=== PATIENT | female | born 1950 | race Caucasian/White ===

== ENCOUNTER → 2019-12-23 09:41 | Outpatient (CLI) | payer OTHER, SELFPAY ==
--- NOTE | ~2019-12-23 | MR_ITS ---
EXAMINATION: MR brain/brain stem wo con DATE: 12/23/2019 10:30 INDICATION: Other amnesia. Headache. TECHNIQUE: Magnetic resonance imaging (MRI) of the brain and brainstem was performed without intraven ous contrast. Sequences included sagittal and axial T1-weighted FSE, axial diffusion-weighted FS EPI, axial T2*-weighted GRE, axial T2-weighted FLAIR Propeller, and axial T2-weighted Propeller. Apparent diffusion coefficient (ADC) maps were created. COMPARISON: None. FINDINGS: There is no intracranial hemorrhage, acute infarction, or abnormal intracranial mass lesion . The ventricles are normal in size. The paranasal sinuses are clear. The mastoid air cells are amelia l. The orbits are normal. IMPRESSION: 1. Normal brain. Reviewed, dictated and finalized at location A. PLATER IMPRESSION: 1. Normal brain.
== END ==
PROVIDERS: PCP Family Medicine; Visit Provider Family Medicine
DX: R41.3 Other amnesia (principal)
CPT/HCPCS: 70551

== ENCOUNTER 2020-08-16 09:07 | Outpatient (CLI) | payer MEDICARE, SELFPAY ==
--- NOTE | ~2020-08-16 | XR_ITS ---
EXAMINATION: XR foot LT 2V, XR ankle LT min 3V EXAM DATE: 08/16/2020 09:50 INDICATION: No known recent injury provided at this time. Pain of the left foot, ankle. TECHNIQUE: Left ankle frontal, lateral and oblique projections obtained and reviewed. Frontal and la teral projections left foot. There are no prior studies for comparison. FINDINGS: The left ankle mortise appears intact. There is moderate-sized inferior calcaneal spur. Mild hallux valgus. There is mild to moderate 1st metatarsophalangeal and interphalangeal primary ost eoarthritis. There are no bony erosions identified. There are no acute fractures or dislocations i dentified. There is no subcutaneous gas. The soft tissue is unremarkable. There are no radiopaque foreign bodies. IMPRESSION: 1. 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 2. Mild hallux valgus. 3. Moderate size calcaneal inferior spur. Reviewed, dictated and finalized at location B. IMPRESSION: 1. 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 2. Mild hallux valgus. 3. Moderate size calcaneal inferior spur.
== END 2020-08-16 09:08 | disposition home or self-care (01) ==
LOC: ANHIMG 09:21
PROVIDERS: PCP Family Medicine; Visit Provider Nurse Practitioner Family
DX: M79.673 Pain in unspecified foot (principal); M79.89 Other specified soft tissue disorders; M19.072 Primary osteoarthritis, left ankle and foot; M20.12 Hallux valgus (acquired), left foot; M77.32 Calcaneal spur, left foot
CPT/HCPCS: 73610; 73620

== ENCOUNTER 2020-12-03 10:23 | Outpatient (CLI) | payer MEDICARE, SELFPAY ==
--- NOTE | 2020-12-05 10:43 | WPDNEUROLOGY ---
Neurology EEG Report General Information Date of Study: 12/03/20 TEST EEG DIAGNOSIS seizures with the possibility of his stroke CONDITION OF RECORDING awake drowsy and sleep EEG NUMBER [id number] CLINICAL HISTORY patient reported a couple of months ago he had an episode of seizures and was in [facility] has had no episode since then. EEG DESCRIPTION Basic resting occipital frequency consists of low to medium voltage 11 to 13 hertz per 2nd alpha admixed with low-voltage 15 to 18 hertz per 2nd beta. Regular EKG artifact is noted throughout the tracing intermittently. Bilateral symmetrical sleep activity is seen during sleep. Intermittent low-voltage right hemispheric delta activity is noted. Non paroxysmal focal. And lateralizing. IMPRESSION Abnormal record due to the presence of right hemispheric delta activity considering the clinical history this could be related to the previous insult clinical correlation recommended. There is no evidence of paroxysmal discharge at this particular time
== END 2020-12-03 10:24 | disposition home or self-care (01) ==
PROVIDERS: PCP Family Medicine
DX: R56.9 Unspecified convulsions (principal); R41.9 Unspecified symptoms and signs involving cognitive functions and awareness
CPT/HCPCS: 95816

== ENCOUNTER 2024-10-09 08:13 | Outpatient (CLI) | payer MEDICARE, SELFPAY ==
--- NOTE | ~2024-10-09 | MR_ITS ---
EXAMINATION: MR abdomen wo/w con DATE: 10/09/2024 09:23 INDICATION: Chronic abdominal pain TECHNIQUE: Magnetic resonance imaging (MRI) of the abdomen was performed without and with 16 mL Multi renea intravenous contrast. Sequences included coronal T2-weighted SS-FSE, coronal and axial FS 2D-F IESTA, axial STIR FSE, axial T2-weighted SS-FSE, axial T2-weighted FS SS-FSE, axial diffusion-weighte d SE, axial dual-echo T1-weighted FSPGR, and axial and coronal T1-weighted LAVA. Postcontrast axial T 1-weighted LAVA images were obtained in a time course. Postcontrast coronal T1-weighted LAVA images w ere obtained. COMPARISON: CT dated 04/10/2007 FINDINGS: Heart size is normal. No pericardial or pleural effusion. Magnetic field artifact associated with cho lecystectomy clips at the gallbladder fossa. Liver, spleen, pancreas, bilateral adrenal glands and ki dneys are normal. Common bile duct measures up to 5 mm diameter which is normal with no intrahepatic ductal or ductal dilation. No evident choledocholithiasis. Visual is portions of bowels are normal. N o pathologically enlarged abdominal or upper pelvic lymphadenopathy. Mild lumbar spondylosis with Stefanie morl's node along the inferior endplate of L4. Normal marrow signal is normal throughout. IMPRESSION: 1. Normal abdominal MRI. Reviewed, dictated and finalized at location B. AT CUTTER MACHINE IMPRESSION: 1. Normal abdominal MRI.
== END 2024-10-09 08:14 | disposition home or self-care (01) ==
LOC: ANHIMG 08:16
PROVIDERS: PCP Family Medicine; Visit Provider Family Medicine
DX: G89.29 Other chronic pain (principal); N28.9 Disorder of kidney and ureter, unspecified; R10.11 Right upper quadrant pain
CPT/HCPCS: 74183; A9577

== ENCOUNTER 2024-10-18 00:07 | Day surgery (SDC) | payer MEDICARE, SELFPAY ==
[2024-10-18 12:30] VITALS: BP 194/89; PULSE 68; RESP 20; TEMP 36.1; O2SAT 100
[2024-10-18] MEDS: LACTATED RINGERS 1,000 ML 150 ML IV CONT (12:47)
[2024-10-18 12:48] LABS: Glucose Point of Care 152 mg/dl (65-105)
--- NOTE | 2024-10-18 13:07 | P.HP_ITS ---
H&P: [facility] History of Present Illness Date/Time: 10/18/24 13:07 Chief Complaint: Dysphagia- screening colonoscopy Narrative: This is the patient's first colonoscopy after almost 20 years. There are no GI symptoms and there is no family history of colorectal cancer. The patient had a stroke 3 years ago, and since then, she has noticed that she had difficulty swallowing especially solids. There is no unintentional weight loss heartburn, or hematemesis. Review of Systems Review of Systems: All systems reviewed & are unremarkable except as noted in HPI and below PMFSH Past Medical History Medical History Altered mental status Apnea BMI 31.0-31.9,adult BMI 32.0-32.9,adult Dermatitis Ductal carcinoma of breast, stage 4 Essential (primary) hypertension GERD without esophagitis Hx of breast cancer Hypothyroidism Lump of left breast Mixed hyperlipidemia Seizures Type 2 diabetes mellitus with diabetic neuropathy, unspecified Vitamin D deficiency, unspecified Surgical History Surgical History Hx of cholecystectomy Hx of hysterectomy Family History Family History Father No problems noted. Mother No problems noted. Sibling No problems noted. Other Asthma Cerebrovascular accident Diabetes mellitus Family history of arthritis Family history of atrial fibrillation Family history of chronic obstructive pulmonary disease Family history of congestive heart failure Family history of hepatitis Family history of obesity Hypertension Social History Social History Smoking status: Never smoker Tobacco type: cigarettes Second hand tobacco smoke exposure: No Smoking end date: 11/23/80 Alcohol intake: never Substance use: never Substance use type: does not use Do You Feel Safe in your Home?: Yes Lack of Transportation: No Lack of Food: Never True Current Housing: I Have Housing Concerned About Future Housing: No Difficulty Paying Gas/Electric Bills: No Difficulty Paying for Meds: No Currently Unemployed: No Education: Associate Degree Difficulty w/ Childcare or Family Care: No Living arrangements: with family Additional living arrangements comments: Occupation/Education: occupation 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 Gender identity (if verbalized by the patient): Female Sexual Orientation (if Verbalized by the Patient): Straight or Heterosexual Spiritual care concerns: No Agree to blood products: Yes Meds Home Medications and Allergies Home Medications Medication Instructions Recorded Confirmed Type cetirizine 10 mg capsule (Zyrtec) 10 mg PO DAILY PRN Allergies 11/13/21 10/18/24 History losartan 50 mg tablet 50 mg PO DAILY #90 tabs 07/17/24 10/18/24 Rx levothyroxine 75 mcg tablet 75 mcg PO DAILY #90 tabs 08/02/24 10/18/24 Rx pen needle, diabetic 31 gauge x #100 ea 08/08/24 10/18/24 Rx 3/16 (BD Ultra-Fine Mini Pen Needle) albuterol sulfate 90 mcg/actuation 1 inh inhalation Q4H PRN 09/06/24 10/18/24 Rx aerosol inhaler bronchospasm #6.7 grams montelukast 10 mg tablet 10 mg PO DAILY #90 tabs 09/06/24 10/18/24 Rx (Singulair) pantoprazole 20 mg tablet,delayed 20 mg PO QAM #90 tabs 09/12/24 10/18/24 Rx release insulin glargine 100 unit/mL (3 See Rx Instructions .Route 09/29/24 10/18/24 Rx mL) subcutaneous pen (Lantus .COMPLEX #93 mL Solostar U-100 Insulin) Allergies Allergy/AdvReac Type Severity Reaction Status Date / Time dapagliflozin [From Farxiga] Allergy Mild Other Verified 10/18/24 12:28 Macrolide Antibiotics Allergy Mild Rash Verified 10/18/24 12:28 morphine Allergy Mild Vomiting Verified 10/18/24 12:28 erythromycin base Allergy Unknown Nausea Verified 10/18/24 12:28 iodine Allergy Unknown Hives Verified 10/18/24 12:28 Penicillins Allergy Unknown Rash Verified 10/18/24 12:28 moxifloxacin [From Avelox] AdvReac Severe Anaphylactic Verified 10/18/24 12:28 Shock metformin AdvReac Mild Nausea Verified 10/18/24 12:28 Vital Signs Vital Signs - 24 hr 10/18/24 12:30 Temperature 97 F L Pulse Rate 68 Respiratory Rate 20 Blood Pressure 194/89 H Pulse Oximetry 100 Oxygen Delivery Room Air Exam Const: General: cooperative and healthy appearing Resp: Effort & Inspection: normal respiratory effort and able to speak in complete sentences Auscultation: clear to auscultation bilaterally Cardio: Rate: regular rate Rhythm: regular rhythm GI: Inspection: normal to inspection GI Palp: No No hepatosplenomegaly present Auscultation: normal bowel sounds Rectal Exam: deferred Skin: General skin exam: normal color Psych: Appearance: grossly normal Mental Status: mental status grossly normal Assessment and Plan Assessment and plan (1) Colon cancer screening: Code(s): Z12.11 - Encounter for screening for malignant neoplasm of colon Status: Acute Assessment and Plan: The patient is deemed a good candidate for EGD and colonoscopy. If a Schatzki ring is found, we will proceed with dilatation. Consent signed. Will proceed.
--- NOTE | 2024-10-18 13:08 | WPDANESEPPF ---
Anes - Initial Pre Proc Eval Procedure: Operation Date: 10/18/24 13:00 Proposed Procedures p Esophagogastroduodenoscopy & Colonoscopy - Christian Tomas MD Date/Time: 10/18/24 13:08 Surgeon: Christian Tomas MD Pre Op Diagnosis: Dysphagia Patient Data Age: 74 Gender: F Height: 1.63 m Weight: 81.4 kg Last Vital Signs Temp 97 F L 10/18/24 12:30 Pulse 68 10/18/24 12:30 Resp 20 10/18/24 12:30 BP 194/89 H 10/18/24 12:30 Pulse Ox 100 10/18/24 12:30 O2 Del Method Room Air 10/18/24 12:30 Allergies Allergy/AdvReac Type Severity Reaction Status Date / Time dapagliflozin [From Farxiga] Allergy Mild Other Verified 10/18/24 12:28 Macrolide Antibiotics Allergy Mild Rash Verified 10/18/24 12:28 morphine Allergy Mild Vomiting Verified 10/18/24 12:28 erythromycin base Allergy Unknown Nausea Verified 10/18/24 12:28 iodine Allergy Unknown Hives Verified 10/18/24 12:28 Penicillins Allergy Unknown Rash Verified 10/18/24 12:28 moxifloxacin [From Avelox] AdvReac Severe Anaphylactic Verified 10/18/24 12:28 Shock metformin AdvReac Mild Nausea Verified 10/18/24 12:28 Home Medications Medication Instructions Recorded Confirmed Type cetirizine 10 mg capsule (Zyrtec) 10 mg PO DAILY PRN Allergies 11/13/21 10/18/24 History losartan 50 mg tablet 50 mg PO DAILY #90 tabs 07/17/24 10/18/24 Rx levothyroxine 75 mcg tablet 75 mcg PO DAILY #90 tabs 08/02/24 10/18/24 Rx pen needle, diabetic 31 gauge x #100 ea 08/08/24 10/18/24 Rx 3/16 (BD Ultra-Fine Mini Pen Needle) albuterol sulfate 90 mcg/actuation 1 inh inhalation Q4H PRN 09/06/24 10/18/24 Rx aerosol inhaler bronchospasm #6.7 grams montelukast 10 mg tablet 10 mg PO DAILY #90 tabs 09/06/24 10/18/24 Rx (Singulair) pantoprazole 20 mg tablet,delayed 20 mg PO QAM #90 tabs 09/12/24 10/18/24 Rx release insulin glargine 100 unit/mL (3 See Rx Instructions .Route 09/29/24 10/18/24 Rx mL) subcutaneous pen (Lantus .COMPLEX #93 mL Solostar U-100 Insulin) Laboratory Tests 10/18/24 12:45 POC Capillary Glucose 152 H mg/dl (65-105) Patient hx anesthesia problems: none Family hx anesthesia problems: none Results Review: All pre-operative results and documents have been reviewed as part of the pre-operative evaluation. [facility] Past Medical History Medical History Altered mental status Apnea BMI 31.0-31.9,adult BMI 32.0-32.9,adult Dermatitis Ductal carcinoma of breast, stage 4 Essential (primary) hypertension GERD without esophagitis Hx of breast cancer Hypothyroidism Lump of left breast Mixed hyperlipidemia Seizures Type 2 diabetes mellitus with diabetic neuropathy, unspecified Vitamin D deficiency, unspecified Surgical History Surgical History Hx of cholecystectomy Hx of hysterectomy Family History Family History Father No problems noted. Mother No problems noted. Sibling No problems noted. Other Asthma Cerebrovascular accident Diabetes mellitus Family history of arthritis Family history of atrial fibrillation Family history of chronic obstructive pulmonary disease Family history of congestive heart failure Family history of hepatitis Family history of obesity Hypertension Social History Social History Smoking status: Never smoker Tobacco type: cigarettes Second hand tobacco smoke exposure: No Smoking end date: 11/23/80 Alcohol intake: never Substance use: never Substance use type: does not use Do You Feel Safe in your Home?: Yes Lack of Transportation: No Lack of Food: Never True Current Housing: I Have Housing Concerned About Future Housing: No Difficulty Paying Gas/Electric Bills: No Difficulty Paying for Meds: No Currently Unemployed: No Education: Associate Degree Difficulty w/ Childcare or Family Care: No Living arrangements: with family Additional living arrangements comments: Occupation/Education: occupation 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 Gender identity (if verbalized by the patient): Female Sexual Orientation (if Verbalized by the Patient): Straight or Heterosexual Spiritual care concerns: No Agree to blood products: Yes Anes - Eval Final PreProcedure Day of Procedure 10/18/24 13:08 Patient weight: obese Heart: regular rate and rhythm Lungs: clear to auscultation Airway: Mallampati scale class II Neurological: alert and oriented Last oral intake: >/= 8 hours ASA classification: III Emergent: no Anesthetic plan: proceed Anesthesia type and monitoring: general GIVS and standard monitoring Results Review: All pre-operative results and documents have been reviewed as part of the pre-operative evaluation. Informed Consent: The patient's anesthetic plan and its attendant risks and benefits were discussed with the patient/family/POA. Questions were solicited and answers provided to the satisfaction of the patient/family/POA.
[2024-10-18 14:18] VITALS: BP 160/84; PULSE 65; RESP 21; O2SAT 100
[2024-10-18 14:28] VITALS: BP 161/83; PULSE 65; RESP 18; O2SAT 100
--- NOTE | 2024-10-18 14:30 | SUR.OPER ---
EDG: Start 1343, End 1352 Colonoscopy: Start 1358, End 1414
[2024-10-18 14:38] VITALS: BP 195/85; PULSE 70; RESP 20; O2SAT 100
[2024-10-18 14:52] LABS: Glucose Point of Care 131 mg/dl (65-105)
== END 2024-10-18 14:59 | disposition home or self-care (01) ==
PROVIDERS: PCP Family Medicine; Referring Provider Nurse Practitioner Family; Visit Provider Internal Medicine Gastroenterology
PROC: 0DJ08ZZ Inspection of Upper Intestinal Tract, Via Natural or Artificial Opening Endoscopic (ICD-10-PCS; CPT 43235; principal; 2024-10-18 13:00)
DX: Z12.11 Encounter for screening for malignant neoplasm of colon (principal); D12.5 Benign neoplasm of sigmoid colon; K64.1 Second degree hemorrhoids; K57.30 Diverticulosis of large intestine without perforation or abscess without bleeding; K22.2 Esophageal obstruction; K44.9 Diaphragmatic hernia without obstruction or gangrene; I10 Essential (primary) hypertension; E03.9 Hypothyroidism, unspecified; E78.2 Mixed hyperlipidemia; E11.40 Type 2 diabetes mellitus with diabetic neuropathy, unspecified; E55.9 Vitamin D deficiency, unspecified; G89.29 Other chronic pain; R41.82 Altered mental status, unspecified; G47.30 Sleep apnea, unspecified; K21.9 Gastro-esophageal reflux disease without esophagitis; R56.9 Unspecified convulsions; E66.9 Obesity, unspecified; Z68.30 Body mass index [BMI] 30.0-30.9, adult; Z79.51 Long term (current) use of inhaled steroids; Z79.4 Long term (current) use of insulin; Z98.890 Other specified postprocedural states; Z90.49 Acquired absence of other specified parts of digestive tract; Z85.3 Personal history of malignant neoplasm of breast; Z86.73 Personal history of transient ischemic attack (TIA), and cerebral infarction without residual deficits; Z82.49 Family history of ischemic heart disease and other diseases of the circulatory system
CPT/HCPCS: 43450; 45385; 82948; 88305; J2003; J2704; J7120

== ENCOUNTER 2024-12-30 07:01 | Outpatient (CLI) | payer MEDICARE, SELFPAY ==
--- NOTE | ~2024-12-30 | NM_ITS ---
EXAMINATION: NM bone scan limited area DATE: 12/30/2024 10:30 INDICATION: Lytic lesion of thoracic spine. TECHNIQUE: 26.5 mCi Tc-99m HDP was administered intravenously. Delayed scintigrams of the chest, abd omen, and pelvis were obtained. COMPARISON: CT abdomen and pelvis 04/10/2007, chest 2 views 05/31/2004 FINDINGS: There is a normal distribution of activity in the bones. IMPRESSION: 1. Normal exam. Reviewed, dictated and finalized at location A. T PARKING ATTENDANT IMPRESSION: 1. Normal exam.
--- OUTSIDE RECORDS SUMMARY | 2024-12-30 07:05 | XMS_ITS | Clinical Summary ---
Author Organization [facility] Address [address] [place] [id number] Care Team Providers Care Career Law Clerk Name Role Phone Eliseo Charles MD Primary Care Provider [phone] Allergies Active Allergy Reactions Criticality Noted Date Comments Moxifloxacin Unknown 08/18/2019 Morphine Unknown 08/18/2019 Penicillin G Unknown 08/18/2019 Medications insulin aspart U-100 (NovoLOG) 100 unit/mL (3 mL) insulin pen Inject 40 Units under the skin Active SITagliptin-met formin (JANUMET) 50-1,000 mg per tablet Take 1 tablet by mouth 2 (two) times a day with meals Active pantoprazole DR (PROTONIX) 40 mg EC tablet Take 40 mg by mouth daily Active montelukast (SINGULAIR) 10 mg tablet Take 10 mg by mouth nightly Active insulin detemir U-100 (LEVEMIR) 100 unit/mL (3 mL) insulin pen Acti ve losartan-hydroC HLOROthiazide (HYZAAR) 100-12.5 mg per tablet Take 1 tablet by mouth daily Active rosuvastatin (CRESTOR) 20 mg tablet Take 20 mg by mouth daily Active levothyroxine sodium (TIROSINT) 75 mcg capsule Take 75 mcg by mouth teller head before breakfast Active budesonide-form oterol (SYMBICORT) 160-4.5 mcg/actuation inhaler Inhale 2 puffs 2 (two) times a day Rinse mouth with water after use. Do not swallow. Active albuterol HFA (PROVENTIL HFA,VENTOLIN HFA,PROAIR HFA) 90 mcg/actuation inhaler Inhale 2 puffs every 6 (six) hours as needed for wheezing Active Active Problems Problem Noted Date Diagnosed Date Left atrial enlargement 08/18/2019 Surgical History Surgery Date Site/Laterality Comments HYSTERECTOMY 11/23/2004 - 11/22/2005 Medical History Medical History Date Comments Hyperlipidemia Hypertension Diabetes mellitus (HCC) Family History Relation Name Status Comments Father (Age 74) heart shantal ch Mother (Age 84) stroke Sister Alive autoimmune Social History Tobacco Use Types Packs/Day Years Used Date Smoking Tobacco: Never Smokeless Tobacco: Current Alcohol Use Standard Drinks/Week Comments Never 0 (1 standard drink = 0.6 oz pur e alcohol) AUDIT-C Answer Date Recorded Frequency of Alcohol Consumption Never 08/18/2019 Average Number of Drinks Not on file 019 Frequency of Binge Drinking Not on file 07/25 Personal Safety Answer Date Recorded Getting School Help Needed Not on file 02/06 Comments Unknown Sex and Gender Information Value Date Recorded Sex Assigned at Not on file Legal Sex Female 2:02 PM CDT Gender Identity Not on file Sexual Orientation Not on file Obstetrics History Last Filed Vital Signs Vital Sign Reading Time Taken Comments Blood Pressure 128/80 08/18/2019 3:35 PM CDT Pulse 82 08/18/2019 3:35 PM CDT Temperature - - Respiratory Rate - - Oxygen Saturation 98% 08/18/2019 3:35 PM CDT Inhaled Oxygen Concentration - - Weight 91.6 kg (202 lb) 08/18/2019 3:35 PM CDT Height 165.1 cm (5' 5 ) 08/18/2019 3:35 PM CDT Body Mass Index 33.61 08/18/2019 3:35 PM CDT Plan of Treatment Not on file Insurance MEDICARE Care Teams Career Law Clerk Relationship Specialty Start Date End Date Eliseo Charles MD PCP - General Family Medicine 08/18/19
--- OUTSIDE RECORDS SUMMARY | 2024-12-30 07:05 | XMS_ITS | Referral Summary ---
Author Organization [facility] Address [address] [place] [id number] Care Team Providers Care Motor Vehicle Operator Road Supervisor Name Role Phone Eliseo Charles MD Primary Care Provider [phone] Allergies Active Allergy Reactions Criticality Noted Date [...] mcg capsule Take 75 mcg by mouth project development manager before breakfast Active budesonide-form oterol (SYMBICORT) 160-4.5 mcg/actuation inhaler Inhale 2 puffs 2 (two) times a day Rinse mouth with water after use. Do not swallow. Active albuterol HFA (PROVENTIL HFA,VENTOLIN HFA,PROAIR HFA) 90 mcg/actuation inhaler Inhale 2 puffs every 6 (six) hours as needed for wheezing Active Active Problems Problem Noted Date Diagnosed Date Left atrial enlargement 08/18/2019 Social History Tobacco Use Types Packs/Day Years [...] on file Sexual Orientation Not on file Last Filed Vital Signs Vital Sign Reading [...] Not on file Insurance MEDICARE Care Teams Motor Vehicle Operator Road Supervisor Relationship Specialty Start Date End Date Eliseo Charles MD PCP - General Family Medicine 08/18/19
--- OUTSIDE RECORDS SUMMARY | 2024-12-30 07:06 | XMS_ITS | Clinical Summary ---
Author Organization [facility] Address [facility] [place] [address] Care Team Providers Care Office Assistant Receptionist Name Role Phone Eliseo Charles MD Primary Care Provider [phone] Allergies Active Allergy Reactions Criticality Noted Date Comments Erythromycin GI Upset 02/23/2004 Morphine Unknown 08/18/2019 Moxifloxacin Throat swelling,Unknown 09/05/2013 Penicillins Hives,Unknown 02/23/2004 Tetracyclines & Related Unknown 09/05/2013 Medications LANTUS SOLOSTAR 100 UNIT/ML injection (PEN) Inject 50 Units into the skin nightly at bedtime. 10/05/20 24 Active benzonatate (TESSALON) 100 MG capsule TAKE 1 CAPSULE ORALLY THREE TIMES A DAY NEEDED FOR COUGH 11/22/20 24 Active pantoprazole EC (PROTONIX) 40 MG tablet Take 20 mg by mouth daily. Active levothyroxine (SYNTHROID) 75 MCG tablet Take 1 tablet (75 mcg total) by mouth daily. 10/29/20 24 Active montelukast (SINGULAIR) 10 MG tablet Take 1 tablet (10 mg total) by mouth nightly at bedtime. Active guaiFENesin (DIABETIC TUSSIN EX) 100 MG/5ML solution Take 10 mLs (200 mg total) by mouth every 4 (four) hours as needed for Cough. Active cetirizine (ZYRTEC) 10 MG tablet Take 1 tablet (10 mg total) by mouth daily. Active albuterol sulfate HFA 108 (90 Base) MCG/ACT inhaler Inhale 1 puff into the lungs every 4 (four) hours as needed for Wheezing or Shortness of breath. 8 g 12/05/19 25 Active losartan (COZAAR) 100 MG tablet Take 1 tablet (100 mg total) by mouth daily. 30 tablet 12/05/19 25 Active chlorthalidone (HYGROTEN) 25 MG tablet Take 1 tablet (25 mg total) by mouth daily. 30 tablet 12/06/19 25 Active fluticasone-sa lmeterol (ADVAIR DISKUS) 250-50 MCG/ACT inhaler Inhale 1 puff into the lungs 2 (two) times daily. 60 each 12/05/19 25 Active cefUROXime (CEFTIN) 250 MG tablet TAKE 1 TABLET BY MOUTH EVERY 12 HOUR FOR 10 DAYS 11/22/20 24 025 Discontinued(St op Taking at Discharge) losartan (COZAAR) 50 MG tablet Take 1 tablet (50 mg total) by mouth daily. 07/27/20 24 025 Discontinued albuterol sulfate HFA 108 (90 Base) MCG/ACT inhaler Inhale 1 puff into the lungs every 4 (four) hours as needed for Wheezing or Shortness of breath. 025 Discontinued Pseudoephedrin e-Ibuprofen (ADVIL COLD & SINUS LIQUI-GELS) 30-200 MG Cap Take 1 tablet by mouth daily as needed (cold). 025 Discontinued(St op Taking at Discharge) DM-Doxylamine- Acetaminophen (NYQUIL COLD & FLU OR) Take by mouth nightly as needed (cold). 025 Discontinued(St op Taking at Discharge) predniSONE (DELTASONE) 20 MG tablet Take 2 tablets (40 mg total) by mouth daily for 3 days. 6 tablet 12/06/19 25 025 mometasone-for moterol (DULERA) 200-5 MCG/ACT Aerosol Inhale 1 puff into the lungs 2 (two) times a day. 13 g 12/05/19 25 025 Discontinued(St op Taking at Discharge) Active Problems Problem Noted Date Diagnosed Date Pneumonia 12/01/2024 Encounters Date Type Department Care Team Description 12/07/2024 Hospital Follow-up Call [facility] [address] [place] [address] [place] [address] Allie Singh RN Hospital Follow Up (12/01/2024 - 12/05/2024 (4 days)/[facility]///) 12/01/2024 12:21 PM HAND ETCHER HELPER - 12/05/2024 10:28 AM HAND ETCHER HELPER Hospital Encounter [facility] Medical/Surgical [address] [place] [address] Ramos Contreras DO Sahi, Robinder S, MD McHale, Sara A, MD Shortness Of Breath Discharge Disposition: Home or Self Care (Routine Discharge) 12/01/2024 Travel from Last 3 Months Social History Tobacco Use Types Packs/Day Years Used Date Smoking Tobacco: Never Passive Smoke Exposure: Never Smokeless Tobacco: Never Tobacco Cessation:Counseling Given: Not Answered [id number] Health Literacy Answer Date Recor ded How often do you need to hav e someone help you when you read instructions, pamphlets, or other written material from your doctor or pharmacy? Never 12/01/2024 [facility] Utilities Answer Date Recorded In the past [address] [facility] [employer], [employer], oil, or water [employer] threatened to shut off services in your home? No 12/01/2024 Humiliation, Afraid, Rape, and Kick questionnair e Answer Date Recorded Within the last year, have y ou been afraid of your partner or ex-partner? No 12/01/2024 Within the last year, have y ou been humiliated or emotionally abused in other ways by your partner or ex-partner? No Within the last year, have y ou been kicked, hit, slapped, or otherwise physically hurt by your partner or ex-partner? No 12/01/2024 Within the last year, have y ou been raped or forced to have any kind of sexual activity by your partner or ex-partner? No 12/01/2024 Social Connection and Isolat ion Panel [NHANES] Answer Date Recorded In a typical week, how many times do you talk on the phone with family, friends, or neighbors? Twice a week 12/01/2024 How often do you get togethe r with friends or relatives? Twice a week 12/01/2024 How often do you attend [facility] or shinto services? More than 4 times per year 12/01/2024 Do you belong to any clubs o r organizations such as confucianist groups, unions, fraternal or athletic groups, or school groups? No 12/01/2024 How often do you attend meet ings of the clubs or organizations you belong to? More than 4 times per year 12/01/2024 Are you , , di vorced, , never , or living with a partner? 12/01/2024 AUDIT-C Answer Date Recorded Q1: How often do you have a drink containing alcohol? Never 12/01/2024 Q2: How many drinks containi ng alcohol do you have on a typical day when you are drinking? Patient does not drink Q3: How often do you have si x or more drinks on one occasion? Never 12/01/2024 Overall Financial Resource Strain (CARDIA) Answe r Date Recorded How hard is it for you to pa y for the very basics like food, housing, medical care, and heating? Not hard at all 12/01/2024 [facility] - Occupational Stress Questionnaire Answer Date Recorded Do you feel stress - tense, restless, nervous, or anxious, or unable to sleep at night because your mind is troubled all the time - these days? Not at all 12/01/2024 Hunger Vital Sign Answer Date Recorded Within the past 12 months, y ou worried that your food would run out before you got the money to buy more. Never true 12/01/19 25 Within the past 12 months, t he food you bought just didn't last and you didn't have money to get more. Never true 12/01/2024 PRAPARE - Transportation Answer Date Re corded In the past 12 months, has l ack of transportation kept you from medical appointments or from getting medications? No 07/2025 In the past 12 months, has l ack of transportation kept you from meetings, work, or from getting things needed for daily living? No 12/01/2024 Housing Stability Vital Sign Answer Jonathan e Recorded In the last 12 months, was t here a time when you were not able to pay the mortgage or rent on time? No 12/01/2024 In the past 12 months, how m any times have you moved where you were living? 1 12/01/2024 At any time in the past 12 m [facility], were you homeless or living in a fdc (including now)? No 12/01/2024 Comments No Sex and Gender Information Value Date Recorded Sex Assigned at Not on file Legal Sex Female 4:42 PM CDT Gender Identity Not on file Sexual Orientation Not on file Last Filed Vital Signs Vital Sign Reading Time Taken Comments Blood Pressure 148/86 12/05/2024 7:36 AM HAND ETCHER HELPER Pulse 61 12/05/2024 4:00 AM HAND ETCHER HELPER Temperature 36.4 C (97.6 F) 12/05/2024 7:36 AM HAND ETCHER HELPER Respiratory Rate 18 12/05/2024 7:36 AM HAND ETCHER HELPER Oxygen Saturation 97% 12/05/2024 8:10 AM HAND ETCHER HELPER Inhaled Oxygen Concentration - - Weight 85.2 kg (187 lb 14.4 oz) 12/05/2024 5:00 AM HAND ETCHER HELPER Height 162.6 cm (5' 4 ) 12/01/2024 5:00 PM HAND ETCHER HELPER Body Mass Index 32.25 12/01/2024 5:00 PM HAND ETCHER HELPER Plan of Treatment Health Maintenance Due Date Last Done Comments Colorectal Cancer Screening Colonoscopy (10 Years) 1952 Hemoglobin A1C 1952 Diabetes: Retinopathy Eye Exam 1970 Hepatitis C 1970 RSV Immunization or 60+ Years (1 - Risk 60-74 years 1-dose series) 2012 Annual Medicare Wellness Visit 2017 Dexa Scan (General) 2017 DTaP, Tdap and Td Vaccines (2 - Td or Tdap) 10/06/2023 10/06/2013 COVID-19 Vaccine ( season) 2024 10/14/2021, 02/20/2021, 01/23/2021 Influenza Adult (#1) 2024 08/29/2019, 10/01/2018, 09/02/2017, Additional history exists Lipid Panel 07/08/2025 07/08/2024, 10/23, 06/23/2023, Additional history exists Mammogram Screening 11/03/2025 11/03/2023 Pneumococcal Vaccine: 65+ Years Completed 12/01/2019, 12/01/2017 Zoster Vaccines Completed 01/10/2020, 10/31/2019 Meningococcal B Vaccine Aged Out No l onger eligible based on patient's age to complete this topic Meningococcal Vaccine Aged Out No howard paras eligible based on patient's age to complete this topic RSV Immunizations Under 20 Months Aged Out No longer eligible based on patient's age to complete this topic Procedures Procedure Name Priority Date/Time Associated Diagnosis Comments POCT GLUCOSE - VALDIVIA DOCKED DEVICE Routine 12/05/2024 7:31 AM HAND ETCHER HELPER BASIC METABOLIC PANEL Routine 12/05/2024 6:10 AM HAND ETCHER HELPER POCT GLUCOSE - VALDIVIA DOCKED DEVICE Routine 12/04/2024 8:21 PM HAND ETCHER HELPER POCT GLUCOSE - VALDIVIA DOCKED DEVICE Routine 12/04/2024 5:02 PM HAND ETCHER HELPER POCT GLUCOSE - VALDIVIA DOCKED DEVICE Routine 12/04/2024 11:10 AM HAND ETCHER HELPER XR CHEST PA OR AP 1V Today 12/04/2024 9:38 AM HAND ETCHER HELPER POCT GLUCOSE - VALDIVIA DOCKED DEVICE Routine 12/04/2024 7:33 AM HAND ETCHER HELPER BASIC METABOLIC PANEL Routine 12/04/2024 5:05 AM HAND ETCHER HELPER CBC W/DIFF AUTOMATED Routine 12/04/2024 5:05 AM HAND ETCHER HELPER POCT GLUCOSE - VALDIVIA DOCKED DEVICE Routine 12/03/2024 8:04 PM HAND ETCHER HELPER POCT GLUCOSE - VALDIVIA DOCKED DEVICE Routine 12/03/2024 4:29 PM HAND ETCHER HELPER CULTURE RESPIRATORY W/ GRAM STAIN Routine 12/03/2024 11:49 AM HAND ETCHER HELPER POCT GLUCOSE - VALDIVIA DOCKED DEVICE Routine 12/03/2024 11:05 AM HAND ETCHER HELPER POCT GLUCOSE - VALDIVIA DOCKED DEVICE Routine 12/03/2024 7:36 AM HAND ETCHER HELPER PROCALCITONIN (PCT) Routine 12/03/2024 6 :00 AM HAND ETCHER HELPER BASIC METABOLIC PANEL Routine 12/03/2024 4:47 AM HAND ETCHER HELPER CBC W/DIFF AUTOMATED Routine 12/03/2024 4:47 AM HAND ETCHER HELPER POCT GLUCOSE - VALDIVIA DOCKED DEVICE Routine 12/02/2024 8:22 PM HAND ETCHER HELPER POCT GLUCOSE - VALDIVIA DOCKED DEVICE Routine 12/02/2024 3:57 PM HAND ETCHER HELPER POCT GLUCOSE - VALDIVIA DOCKED DEVICE Routine 12/02/2024 11:47 AM HAND ETCHER HELPER RESPIRATORY PCR PANEL 2 Routine 12/02/2024 10:20 AM HAND ETCHER HELPER POCT GLUCOSE - VALDIVIA DOCKED DEVICE Routine 12/02/2024 7:45 AM HAND ETCHER HELPER BASIC METABOLIC PANEL Routine 12/02/2024 6:15 AM HAND ETCHER HELPER CBC W/DIFF AUTOMATED Routine 12/02/2024 6:15 AM HAND ETCHER HELPER POCT GLUCOSE - VALDIVIA DOCKED DEVICE Routine 12/02/2024 6:14 AM HAND ETCHER HELPER POCT GLUCOSE - VALDIVIA DOCKED DEVICE Routine 12/01/2024 9:13 PM HAND ETCHER HELPER POCT GLUCOSE - VALDIVIA DOCKED DEVICE Routine 12/01/2024 5:40 PM HAND ETCHER HELPER CULTURE, BACTERIA, BLOOD STAT 12/01/2024 5:00 PM HAND ETCHER HELPER WBC WI DIFFERENTIAL TIMED 12/01/2024 1 :33 PM HAND ETCHER HELPER LACTIC ACID STAT 12/01/2024 1:33 PM HAND ETCHER HELPER PROCALCITONIN (PCT) STAT 12/01/2024 1 :33 PM HAND ETCHER HELPER TROPONIN, QUANT STAT 12/01/2024 1:33 PM HAND ETCHER HELPER COMPREHENSIVE METABOLIC PANEL STAT 12/01/2024 1:33 PM HAND ETCHER HELPER CBC W/DIFF AUTOMATED STAT 12/01/2024 1:33 PM HAND ETCHER HELPER INFLUENZA A & B STAT 12/01/2024 1:30 PM HAND ETCHER HELPER CORONAVIRUS (COVID 19) STAT 1:[address] CHEST WO CON STAT 12/01/2024 1:05 PM HAND ETCHER HELPER ECG 12-LEAD STAT 12/01/2024 12:45 PM HAND ETCHER HELPER LIPID PANEL Routine 07/08/2024 7:31 AM CDT Type 2 diabetes mellitus with ESRD (end-stage renal disease) ([facility]) Encounter for long-term (current) use of insulin ([facility]) Mixed hyperlipidemia Myxedema heart disease Essential hypertension, malignant MG DIAG W ANH BILAT DIGI Routine 11/03/2023 9:37 AM HAND ETCHER HELPER Mastodynia Unspecified lump in the left breast, unspecified quadrant from Last 3 Months or Most Recently Relevant to Health Maintenance Results * (ABNORMAL) POCT glucose (12/05/2024 7:31 AM HAND ETCHER HELPER) Only the most recent of16 resultswithin the time period is included. GLUCOSE POC 115(H) 70 - 99 MG/DL 12/05/2024 7:36 AM HAND ETCHER HELPER [facility] 12/05/2024 7:31 AM HAND ETCHER HELPER us Gina Lynn MD POCT ORDERABLES - DEVICE Final Result [facility] [address] [place] [address] [place] [address], [place] * (ABNORMAL) BASIC METABOLIC PANEL (12/05/2024 6:10 AM HAND ETCHER HELPER) Only the most recent of4 resultswithin the time period is included. [facility] GLUCOSE 110(H) 70 - 99 MG/DL 12/05/2024 7:13 AM [facility] BUN 50(H) 7 - 18 MG/DL 12/05/2024 7:13 AM [facility] CREATININE S/P/B 1.45(H) 0.50 - 1.20 MG/DL 12/05/2024 7:13 AM [facility] SODIUM S/P/B 138 136 - 145 MMOL/L 12/05/2024 7:13 AM [facility] POTASSIUM S/P/B 3.8 3.5 - 5.1 MMOL/L 12/05/2024 7:13 AM [facility] CHLORIDE S/P/B 104 100 - 108 MMOL/L 12/05/2024 7:13 AM [facility] CO2 21.2 21.0 - 32.0 MMOL/L 12/05/2024 7:13 AM [facility] CALCIUM S/P/B 8.6 8.5 - 10.1 MG/DL 12/05/2024 7:13 AM [facility] ANION GAP 12.8 5.0 - 15.0 MMOL/L 12/05/2024 7:13 AM [facility] BUN CREATININE RATIO 34.5(H) 6 - 26 12/05/2024 7:13 AM [facility] GFR ESTIMATE 38(L) >90 ML/MIN/1.7 3 M2 12/05/2024 7:13 AM [facility] Comment: NOTE: eGFR is not calculated for patients <18 years of age or gender unknown. This is an estimated GFR calculation using the new CKD EPI creatinine equation without race and so does not require a correction factor for race. This estimated GFR should not be used for calculating drug doses. 12/05/2024 6:10 AM HAND ETCHER HELPER us Gina Lynn MD LABORATORY Final Result [facility] [address] [facility] [place] [address], [place] * XR CHEST PA OR AP 1V (12/04/2024 9:38 AM HAND ETCHER HELPER) Anatomical Region Laterality Modality Chest Computed Tomogra phy 12/04/2024 9:41 AM HAND ETCHER HELPER Impressions 12/04/2024 9:46 AM HAND ETCHER HELPER IMPRESSION: 1. Mild reticular prominence in the lower lungs without focal pulmonary consolidation. Groundglass opacity in the right lower lung was better appreciated on recent CT chest. This is nonspecific and could reflect asthma, bronchitis, viral illness, and/or smoking. Follow-up as recommended on recent chest CT continues to be recommended. 2. Thoracic spine findings were better assessed on recent chest CT and follow-up as recommended on recent chest CT continues to be recommended. Referred By: Interpreted By: Hector Avila DO, 12/04/2024 9:41 AM Narrative 12/04/2024 9:46 AM HAND ETCHER HELPER [address] [place] [address] Examination: XR CHEST PA OR AP 1V Exam time: 12/04/2024 9:21 AM Clinical history: Follow-up recent chest CT. Shortness of breath and cough since mid October with worsening on November 30. Orthopnea. Comparison: CT chest 12/01/2024 and chest and bilateral rib radiographs 08/12/2024 and chest radiographs 07/07/2020 and 06/30/2019. Technique: AP view of the chest. Findings: The cardiomediastinal silhouette is normal in size. Pulmonary vasculature is appropriately distributed. There is mild reticular prominence in the lower lungs without focal pulmonary consolidation. Groundglass opacity in the right lower lung was better appreciated on recent CT chest. No sizable pleural effusion or pneumothorax is seen. Procedure Note Hector Avila DO - 12/04/[address] [place] [address] Examination: XR CHEST PA OR AP 1V Exam time: 12/04/2024 9:21 AM Clinical history: Follow-up recent chest CT. Shortness of breath andcough since mid October with worsening on November 30. Orthopnea. Comparison: CT chest 12/01/2024 and chest and bilateral rib radiographs08/12/2024 and chest radiographs 07/07/2020 and 06/30/2019. Technique: AP view of the chest. Findings: The cardiomediastinal silhouette is normal in size. Pulmonary vasculatureis appropriately distributed. There is mild reticular prominence in thelower lungs without focal pulmonary consolidation. Groundglass opacity inthe right lower lung was better appreciated on recent CT chest. Nosizable pleural effusion or pneumothorax is seen. IMPRESSION: 1. Mild reticular prominence in the lower lungs without focal pulmonaryconsolidation. Groundglass opacity in the right lower lung was betterappreciated on recent CT chest. This is nonspecific and could reflectasthma, bronchitis, viral illness, and/or smoking. Follow-up asrecommended on recent chest CT continues to be recommended. 2. Thoracic spine findings were better assessed on recent chest CT andfollow-up as recommended on recent chest CT continues to be recommended. Referred By: Interpreted By: Hector Avila DO, 12/04/2024 9:41 AM Gina Lynn MD GENERAL IMAGING Final Result * (ABNORMAL) CBC W/DIFF AUTOMATED (12/04/2024 5:05 AM HAND ETCHER HELPER) Only the most recent of4 resultswithin the time period is included. Pathologist [facility] WBC 10.82 4.50 - 11.00 x10'3/uL 12/04/2024 5:46 AM HAND ETCHER HELPER [facility] RBC 4.34 4.00 - 5.20 x10'6/uL 12/04/2024 5:46 AM HAND ETCHER HELPER [facility] HGB 11.8(L) 12.0 - 16.0 G/DL 12/04/2024 5:46 AM HAND ETCHER HELPER [facility] HCT 36.8(L) 38.0 - 48.0 % 12/04/2024 5:46 AM [facility] MCV 84.8 80.0 - 100.0 FL 12/04/2024 5:46 AM [facility] MCH 27.2 26.0 - 34.0 PG 12/04/2024 5:46 AM [facility] MCHC 32.1 31.0 - 37.0 G/DL 12/04/2024 5:46 AM [facility] RDW 15.4(H) 11.6 - 14.8 % 12/04/2024 5:46 AM [facility] PLT 289 130 - 400 x10'3/uL 12/04/2024 5:46 AM [facility] MPV 10.2 7.0 - 12.0 FL 12/04/2024 5:46 AM [facility] CBC COMMENT AUTOMATED RBC MORPHOLOGY AND PLATELET EVALUATION NORMAL 12/04/2024 5:46 AM [facility] NEUTROPHILS % 45.9 40.0 - 74.0 % 12/04/2024 5:46 AM [facility] LYMPHOCYTES % 39.2 14.0 - 46.0 % 12/04/2024 5:46 AM [facility] MONOCYTES % 8.4 4.0 - 13.0 % 12/04/2024 5:46 AM [facility] EOSINOPHILS 4.6 0.0 - 7.0 % 12/04/2024 5:46 AM [facility] BASOPHILS 1.4 0.0 - 3.0 % 12/04/2024 5:46 AM [facility] IMMATURE GRANS % 0.5(H) 0.0 - 0.43 % 12/04/2024 5:46 AM [facility] NRBC % 0.0 % 12/04/2024 5:46 AM [facility] ABS. NEUTROPHILS TOTAL 4.97 1.69 - 7.81 x10'3/uL 12/04/2024 5:46 AM HAND ETCHER HELPER [facility] ABS. LYMPHOCYTES 4.24 0.21 - 5.42 x10'3/uL 12/04/2024 5:46 AM HAND ETCHER HELPER [facility] ABS. MONOCYTES 0.91 0.04 - 1.37 x10'3/uL 12/04/2024 5:46 AM [facility] ABS. EOSINOPHILS 0.50 0.00 - 0.68 x10'3/uL 12/04/2024 5:46 AM HAND ETCHER HELPER [facility] ABS. BASOPHILS 0.15(H) 0.00 - 0.08 x10'3/uL 12/04/2024 5:46 AM [facility] ABS. IMMATURE GRANULOCYTES 0.05 0.00 - 0.06 x10'3/uL 12/04/2024 5:46 AM [facility] ABS. NUCLEATED RBC'S 0.00 0.00 - 0.01 x10'3/uL 12/04/2024 5:46 AM [facility] 12/04/2024 5:05 AM HAND ETCHER HELPER us Gina Lynn MD LABORATORY Final Result [address] [place] [address], * CULTURE RESPIRATORY W/ GRAM STAIN (12/03/2024 11:49 AM HAND ETCHER HELPER) SPEC DESCRIPTION SPUTUM, EXPECTORATED 12/03/2024 11:54 AM [facility] SPECIAL REQUESTS NO SPECIAL REQUEST 12/03/2024 11:54 AM [facility] GRAM STAIN RESULT NO WHITE BLOOD CELLS SEEN 12/04/2024 2:34 PM [facility] GRAM STAIN RESULT NO ORGANISMS SEEN 12/04/2024 2:34 PM [facility] CULTURE RESULT SPARSE GROWTH OF NORMAL BAUTISTA PRESENT 12/05/2024 7:04 AM HAND ETCHER HELPER [facility] SPUTUM SPECIMEN / Unknown 12/03/2024 11:49 AM HAND ETCHER HELPER 12/03/2024 12:44 PM HAND ETCHER HELPER us Gina Lynn MD MICROBIOLOGY - GENERAL ORDERABL ES Final Result [facility] [address] [place] [address], [facility] [address] [place] [address] [place] [address], [place] * PROCALCITONIN (PCT) (12/03/2024 6:00 AM HAND ETCHER HELPER) Only the most recent of2 resultswithin the time period is included. Procalcitonin 0.07 0.00 - 0.25 NG/ML 12/04/2024 4:50 PM HAND ETCHER HELPER [facility] Comment: PROCALCITONIN INTERPRETATION GUIDELINES LOWER RESPIRATORY TRACT INFECTIONS (LRTI): USE OF PCT IN INPATIENT OR EMERGENCY SITUATION INITIATION OF ANTIBIOTICS PCT VALUE INTERPRETATION <0.10 NG/ML ANTIBIOTIC THERAPY STRONGLY DISCOURAGED. 0.10-0.25 NG/ML ANTIBIOTIC THERAPY DISCOURAGED. 0.26-0.50 NG/ML ANTIBIOTIC THERAPY ENCOURAGED. >0.50 NG/ML ANTIBIOTIC THERAPY STRONGLY ENCOURAGED. DISCONTINUE ANTIBIOTICS PCT LESS THAN OR EQUAL TO 0.25 NG/ML OR DELTA PCT >80 PERCENT DELTA PCT= PCT(PEAK)-PCT(CURRENT)/PCT(PEAK)X100% STUDIES HAVE EVALUATED PCT PROTOCOLS IN THESE PATIENTS AND FOUND THAT FOR PATIENTS WHO ARE CLINICALLY STABLE AND ARE TREATED AT THE ED OR ARE HOSPITALIZED, THE INITIATION OF ANTIBIOTIC THERAPY SHOULD BE BASED ON CLINICAL GROUNDS AND A PCT VALUE OF GREATER THAN OR EQUAL TO 0.26 NG/ML. IF PCT REMAINS LOWER, ANTIBIOTICS CAN BE WITHHELD AND PATIENTS CAN BE REASSESSED CLINICALLY WITHOUT SAFETY CONCERNS. IF PATIENTS ARE CLINICALLY STABLE, AN ALTERNATIVE DIAGNOSIS SHOULD BE CONSIDERED. IF PATIENTS ARE UNSTABLE, THEN ANTIBIOTICS MAY BE CONSIDERED. IF PATIENTS DO NOT IMPROVE IN THE SHORT FOLLOW UP PERIOD OF 6 TO 12 HOURS, CLINICAL RE-EVALUATION AND RE-MEASUREMENT OF PCT IS RECOMMENDED. 12/03/2024 6:00 AM HAND ETCHER HELPER us Gina Lynn MD LABORATORY Final Result [facility] [address] [place] [address], [place] [phone] * RESPIRATORY PCR PANEL 2 (12/02/2024 10:20 AM HAND ETCHER HELPER) Pathologist [facility] ADENOVIRUS PCR (RESP) NOT DETECTED NOT DETECTED 12/02/2024 9:29 PM HAND ETCHER HELPER [facility] CORONAVIRUS 229E PCR (RESP) NOT DETECTED NOT DETECTED 12/02/2024 9:29 PM HAND ETCHER HELPER [facility] CORONAVIRUS HKU1 PCR (RESP) NOT DETECTED NOT DETECTED 12/02/2024 9:29 PM HAND ETCHER HELPER [facility] CORONAVIRUS NL63 PCR (RESP) NOT DETECTED NOT DETECTED 12/02/2024 9:29 PM HAND ETCHER HELPER [facility] CORONAVIRUS OC43 PCR (RESP) NOT DETECTED NOT DETECTED 12/02/2024 9:29 PM HAND ETCHER HELPER [facility] METAPNEUMOVIRUS PCR (RESP) NOT DETECTED NOT DETECTED 12/02/2024 9:29 PM HAND ETCHER HELPER [facility] RHINOVIRUS/ENTEROV IRUS PCR (RESP) NOT DETECTED NOT DETECTED 12/02/2024 9:29 PM HAND ETCHER HELPER [facility] INFLUENZA A PCR (RESP) NOT DETECTED NOT DETECTED 12/02/2024 9:29 PM HAND ETCHER HELPER [facility] INFLUENZA B PCR (RESP) NOT DETECTED NOT DETECTED 12/02/2024 9:29 PM HAND ETCHER HELPER [facility] PARAINFLUENZA 1 PCR (RESP) NOT DETECTED NOT DETECTED 12/02/2024 9:29 PM [facility] PARAINFLUENZA 2 PCR (RESP) NOT DETECTED NOT DETECTED 12/02/2024 9:29 PM HAND ETCHER HELPER [facility] PARAINFLUENZA 3 PCR (RESP) NOT DETECTED NOT DETECTED 12/02/2024 9:29 PM HAND ETCHER HELPER [facility] PARAINFLUENZA 4 PCR (RESP) NOT DETECTED NOT DETECTED 12/02/2024 9:29 PM HAND ETCHER HELPER [facility] RSV PCR (RESP) NOT DETECTED NOT DETECTED 12/02/2024 9:29 PM HAND ETCHER HELPER [facility] B PARAPERTUSIS PCR (RESP) NOT DETECTED NOT DETECTED 12/02/2024 9:29 PM HAND ETCHER HELPER [facility] BORDETELLA PERTUSSIS PCR (RESP) NOT DETECTED NOT DETECTED 12/02/2024 9:29 PM [facility] CHLAMYDOPHILA PNEUMONIAE PCR (RESP) NOT DETECTED NOT DETECTED 12/02/2024 9:29 PM HAND ETCHER HELPER [facility] MYCOPLASMA PNEUMONIAE PCR (RESP) NOT DETECTED NOT DETECTED 12/02/2024 9:29 PM HAND ETCHER HELPER [facility] CORONAVIRUS SARS COV 2 PCR (RESP) NOT DETECTED NOT DETECTED 12/02/2024 9:29 PM [facility] NASOPHARYNGEAL SWAB / Unknown 12/02/2024 10:20 AM HAND ETCHER HELPER Jeffery Brooke MD MICROBIOLOGY - GENERAL ORDERA BLES Final Result [facility] [address] [place] [address], [place] [phone] * BLOOD CULTURE #1 (12/01/2024 5:00 PM HAND ETCHER HELPER) SPEC DESCRIPTION BLOOD 12/01/2024 2:43 PM HAND ETCHER HELPER [facility] SPECIAL REQUESTS NO SPECIAL REQUEST 12/01/2024 2:43 PM HAND ETCHER HELPER [facility] CULTURE RESULT NO GROWTH 5 DAYS 12/07/2024 6:37 AM HAND ETCHER HELPER [facility] BLOOD SPECIMEN OBTAINED FOR BLOOD CULTURE / Unknown 12/01/2024 5:00 PM HAND ETCHER HELPER 12/02/2024 8:21 AM HAND ETCHER HELPER us Ramos Contreras DO MICROBIOLOGY - GENERAL ORDERAB LES Final Result [facility] [address] [place] [address], [facility] [address] [place] [address] [place] [address], [place] * (ABNORMAL) WBC [place] DIFFERENTIAL (12/01/2024 1:33 PM HAND ETCHER HELPER) WBC 13.89(H) 4.50 - 11.00 x10'3/uL 12/01/2024 2:00 PM HAND ETCHER HELPER [facility] SEG NEUTROPHILS 28 % 9:35 PM HAND ETCHER HELPER [facility] LYMPHOCYTES 13 % 12/01/2024 9:35 PM HAND ETCHER HELPER [facility] MONOCYTES 13 % 12/01/2024 9:35 PM HAND ETCHER HELPER [facility] EOSINOPHILS 45 % 12/01/2024 9:35 PM HAND ETCHER HELPER [facility] BASOPHILS 1 % 12/01/2024 9:35 PM HAND ETCHER HELPER [facility] ABS. NEUTROPHILS 3.89 1.80 - 7.70 x10'3/uL 12/01/2024 9:35 PM HAND ETCHER HELPER [facility] ABS. LYMPHOCYTES 1.81 1.00 - 4.80 x10'3/uL 12/01/2024 9:35 PM HAND ETCHER HELPER [facility] ABS. MONOCYTES 1.81(H) 0.24 - 0.86 x10'3/uL 12/01/2024 9:35 PM HAND ETCHER HELPER [facility] ABS. EOSINOPHILS 6.24(H) 0.04 - 0.36 x10'3/uL 12/01/2024 9:35 PM HAND ETCHER HELPER [facility] ABS. BASOPHILS 0.14(H) 0.01 - 0.08 x10'3/uL 12/01/2024 9:35 PM HAND ETCHER HELPER [facility] DIFFERENTIAL TYPE MANUAL DIFFERENTIAL 12/01/2024 9:35 PM HAND ETCHER HELPER [facility] PLT EST. ADEQUATE 12/01/2024 9:35 PM [facility] 12/01/2024 1:33 PM HAND ETCHER HELPER [facility] ANAYA LABORATORY Final Result [facility] [address] [place] [address], [address] [place] [address], [place] * (ABNORMAL) COMPREHENSIVE METABOLIC PANEL (12/01/2024 1:33 PM HAND ETCHER HELPER) GLUCOSE 174(H) 70 - 99 MG/DL 12/01/2024 2:10 PM HAND ETCHER HELPER [facility] BUN 17 7 - 18 MG/DL 12/01/2024 2:10 PM [facility] CREATININE S/P/B 1.26(H) 0.50 - 1.20 MG/DL 12/01/2024 2:10 PM HAND ETCHER HELPER [facility] SODIUM S/P/B 138 136 - 145 MMOL/L 12/01/2024 2:10 PM HAND ETCHER HELPER [facility] POTASSIUM S/P/B 4.2 3.5 - 5.1 MMOL/L 12/01/2024 2:10 PM HAND ETCHER HELPER [facility] CHLORIDE S/P/B 102 100 - 108 MMOL/L 12/01/2024 2:10 PM HAND ETCHER HELPER [facility] CO2 27.4 21.0 - 32.0 MMOL/L 12/01/2024 2:10 PM [facility] CALCIUM S/P/B 9.1 8.5 - 10.1 MG/DL 12/01/2024 2:10 PM [facility] BILIRUBIN TOTAL S/P/B 0.4 0.2 - 1.2 MG/DL 12/01/2024 2:10 PM [facility] Comment: THIS ASSAY IS NOT RECOMMENDED FOR PATIENTS UNDERGOING TREATMENT WITH ELTROMBOPAG DUE TO THE POTENTIAL FOR FALSELY ELEVATED RESULTS. TOTAL PROTEIN S/P/B 7.6 6.4 - 8.2 G/DL 12/01/2024 2:10 PM [facility] ALBUMIN S/P/B 3.6 3.4 - 5.0 G/DL 12/01/2024 2:10 PM [facility] AST 13(L) 15 - 37 U/L 12/01/2024 2:10 PM [facility] ALT 16 14 - 55 U/L 12/01/2024 2:10 PM [facility] ALKALINE PHOSPHATASE S/P/B 213(H) 50 - 136 U/L 12/01/2024 2:10 PM [facility] ANION GAP 8.6 5.0 - 15.0 MMOL/L 12/01/2024 2:10 PM [facility] BUN CREATININE RATIO 13.5 6 - 26 12/01/2024 2:10 PM [facility] A/G RATIO 0.9(L) 1.0 - 2.5 RATIO 12/01/2024 2:10 PM [facility] GFR ESTIMATE 45(L) >90 ML/MIN/1.7 3 M2 12/01/2024 2:10 PM [facility] Comment: NOTE: eGFR is not calculated for patients <18 years of age. This is an estimated GFR calculation using the new CKD EPI creatinine equation without race and so does not require a correction factor for race. This estimated GFR should not be used for calculating drug doses. 12/01/2024 1:33 PM HAND ETCHER HELPER Ramos Contreras DO LABORATORY Final Result Performing Organization Address [facility] Co de Phone Number [address] [place] [address], * LACTIC ACID - SINGLE (12/01/2024 1:33 PM HAND ETCHER HELPER) LACTIC ACID VENOUS 0.6 0.5 - 2.0 MMOL/L 12/01/2024 2:17 PM HAND ETCHER HELPER [facility] 12/01/2024 1:33 PM HAND ETCHER HELPER Ramos Contreras DO LABORATORY Final Result Performing Organization Address [facility] de Phone Number [address] [place] [address], * TROPONIN, QUANT (12/01/2024 1:33 PM HAND ETCHER HELPER) [facility] TROPONIN I HIGH SENSITIVITY 9 0 - 54 ng/L 12/01/2024 2:10 PM HAND ETCHER HELPER [facility] Comment: HIGH DOSES OF BIOTIN, TROPONIN-SPECIFIC AUTOANTIBODIES, AND ANTIBODY THERAPY CONTAINING HAMA MAY INTERFERE WITH THIS TEST RESULT. CORRELATION TO CLINICAL HISTORY AND PRESENTATION RECOMMENDED. 12/01/2024 1:33 PM HAND ETCHER HELPER Ramos Contreras DO LABORATORY Final Result Performing Organization Address [facility] de Phone Number [address] [place] [address], [place] * CORONAVIRUS (COVID-19) MOLECULAR (12/01/2024 1:30 PM HAND ETCHER HELPER) [facility] CORONAVIRUS SARS COV 2 RNA NEGATIVE NEGATIVE 12/01/2024 4:27 PM HAND ETCHER HELPER [facility] Comment: NEGATIVE RESULTS DO NOT RULE OUT COVID 19 AND SHOULD NOT BE USED THE SOLE BASIS FOR TREATMENT OR PATIENT MANAGEMENT DECISIONS, INCLUDING INFECTION CONTROL DECISIONS. NEGATIVE RESULTS SHOULD BE CONSIDERED IN THE CONTEXT OF A PATIENT'S RECENT EXPOSURES, HISTORY AND THE PRESENCE OF CLINICAL SIGNS AND SYMPTOMS CONSISTENT WITH COVID 19. THE ID NOW COVID-19 2.0 TEST HAS BEEN AUTHORIZED BY THE FDA UNDER EAU FOR USE BY AUTHORIZED LABORATORIES. PERFORMED BY NUCLEIC ACID AMPLIFICATION FOR MOLECULAR QUALITATIVE DETECTION OF SARS-COV-2. SPECIMEN TYPE NASAL 12/01/2024 3:53 PM HAND ETCHER HELPER [facility] NASOPHARYNGEAL SWAB / Unknown 12/01/2024 1:30 PM HAND ETCHER HELPER Ramos Contreras DO MICROBIOLOGY - GENERAL ORDERAB LES Final Result Performing Organization Address [facility]/ZIP Co de Phone Number [address] [place] [address], [place] * INFLUENZA A & B (12/01/2024 1:30 PM HAND ETCHER HELPER) SPECIMEN TYPE NASOPHARYNX 12/01/2024 3:53 PM HAND ETCHER HELPER [facility] INFLUENZA A NEGATIVE NEGATIVE 12/01/2024 4:27 PM HAND ETCHER HELPER [facility] INFLUENZA B NEGATIVE NEGATIVE 12/01/2024 4:27 PM HAND ETCHER HELPER [facility] NASAL STRUCTURE / Unknown 12/01/2024 1:30 PM HAND ETCHER HELPER Ramos Contreras DO MICROBIOLOGY GENERAL ORDERAB LES Final Result Performing Organization Address [facility] [place] [address], [place] * CT CHEST WO CON (12/01/2024 1:05 PM HAND ETCHER HELPER) Anatomical Region Laterality Modality Chest Computed Tomogra phy 12/01/2024 1:38 PM HAND ETCHER HELPER Impressions 12/01/2024 1:42 PM HAND ETCHER HELPER IMPRESSION: Mottling of the thoracic spine is present. This could relate to metastatic disease. Bone scan recommended for further evaluation. Scattered groundglass opacification in interstitial changes within the lungs along with a prominent right pretracheal lymph node. Findings may relate to underlying infectious process. This could be subclinical. Follow-up in 3 months recommended after appropriate therapy. Ordered By: RAMOS CONTRERAS Interpreted By: Abel Tarango MD, 12/01/2024 1:38 PM Narrative 12/01/2024 1:42 PM HAND ETCHER HELPER [address] [place] [address] Procedure(s): CT CHEST WO CON Date of service: 12/01/2024 1:03 PM Provided clinical information: 74 years, Female, cough sob pt states hx of breast cancer. SOB cough for several weeks. Procedure and materials: Helical images of the chest are obtained from superior to the thoracic inlet to inferior to the costophrenic angles. Examination is performed without the use of intravenous contrast. A dose lowering technique was used for this procedure, which may include, but is not limited to, dose reduction technique, automated exposure control, iterative reconstruction, ALARA (As Low As Reasonably Achievable), or Image Gently techniques. Comparison studies: None. Findings: Axillae: No enlarged axillary lymph nodes. Mediastinum/Bina:There is a right pretracheal lymph node that is present. This measures 1.2 cm in short axis dimension. This may be reactive. This does have normal morphology although this is slightly prominent in size. No cardiomegaly. Lung Parenchyma:Mild groundglass opacification within the right lower lobe anteriorly. No pleural effusions are present on the right or left. Minimally increased initial markings are present within the right lower lobe posteriorly. Mildly increased initial markings are present the peripheral aspect of the left upper and left lower lobe. Atelectasis is present in the lingula. Findings may relate to underlying subclinical infectious process. Visualized Upper abdominal structures:Prior cholecystectomy. Bone Windows:There is heterogeneous attenuation is present involving the thoracic vertebra. There is a large lucent area that is present within T9. This may relate to a hemangioma. A mottling is more prominent than expected. I cannot exclude metastatic disease. Follow-up bone scan recommended. Degenerative change present in the cervical spine. Procedure Note Abel Tarango MD - 12/01/[address] [place] [address] Procedure(s): CT CHEST WO CON Date of service: 12/01/2024 1:03 PM Provided clinical information: 74 years, Female, cough sob pt stateshx of breast cancer. SOB cough for several weeks. Procedure and materials: Helical images of the chest are obtained fromsuperior to the thoracic inlet to inferior to the costophrenic angles.Examination is performed without the use of intravenous contrast. A dose lowering technique was used for this procedure, which may include,but is not limited to, dose reduction technique, automated exposurecontrol, iterative reconstruction, ALARA (As Low As ReasonablyAchievable), or Image Gently techniques. Comparison studies: None. Findings: Axillae: No enlarged axillary lymph nodes. Mediastinum/Bina:There is a right pretracheal lymph node that is present.This measures 1.2 cm in short axis dimension. This may be reactive. Thisdoes have normal morphology although this is slightly prominent in size.No cardiomegaly. Lung Parenchyma:Mild groundglass opacification within the right lower lobeanteriorly. No pleural effusions are present on the right or left.Minimally increased initial markings are present within the right lowerlobe posteriorly. Mildly increased initial markings are present theperipheral aspect of the left upper and left lower lobe. Atelectasis ispresent in the lingula. Findings may relate to underlying subclinicalinfectious process. Visualized Upper abdominal structures:Prior cholecystectomy. Bone Windows:There is heterogeneous attenuation is present involving thethoracic vertebra. There is a large lucent area that is present within T9.This may relate to a hemangioma. A mottling is more prominent thanexpected. I cannot exclude metastatic disease. Follow-up bone scanrecommended. Degenerative change present in the cervical spine. IMPRESSION: Mottling of the thoracic spine is present. This could relate to metastaticdisease. Bone scan recommended for further evaluation. Scattered groundglass opacification in interstitial changes within thelungs along with a prominent right pretracheal lymph node. Findings mayrelate to underlying infectious process. This could be subclinical.Follow-up in 3 months recommended after appropriate therapy. Ordered By: RAMOS CONTRERAS Interpreted By: Abel Tarango MD, 12/01/2024 1:38 PM us Ramos Contreras DO CT Final Result * ECG 12 lead (12/01/2024 12:45 PM HAND ETCHER HELPER) 12/01/2024 12:4 5 PM HAND ETCHER HELPER Narrative [facility] - 12/01/2024 3:44 PM HAND ETCHER HELPER [facility] Test Date: 2024-12-01 Pat Name: CARMINA DAWSON Department: 100 Room: EDB 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1950 Requested By: RAMOS CONRTERAS Order Number: [id number] Reading MD: Jeffrey Walsh Measurements Intervals [place] Rate: 73 P: 86 [place]: 157 QRS: -6 QRSD: 81 T: 80 QT: 403 QTc: 445 Interpretive Statements SINUS RHYTHM WARNING: DATA QUALITY MAY AFFECT INTERPRETATION No prior ECG for comparison ETCHER HELPER Procedure Note Jeffrey Walsh MD - 12/01/2024 [facility] Test Date: 2024-12-01 Pat Name: CARMINA DAWSON Department: 100 Room: EDB 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1950 Requested By: RAMOS CONTRERAS Order Number: [id number] Reading : Jeffrey Walsh Measurements Intervals [place] Rate: 73 P: 86 [place]: 157 QRS: -6 QRSD: 81 T: 80 QT: 403 QTc: 445 Interpretive Statements SINUS RHYTHM WARNING: DATA QUALITY MAY AFFECT INTERPRETATION No prior ECG for comparison ETCHER HELPER Ramos Contreras DO ECG ORDERABLES Final Result [facility] [address] [place] [address] * LIPID PANEL (07/08/2024 7:31 AM CDT) CHOLESTEROL 129 <200 MG/DL 07/08/2024 10:50 AM CDT [facility] TRIGLYCERIDES 149 <150 MG/DL 07/08/2024 10:50 AM CDT [facility] HDL 54 >40.0 MG/DL 07/08/2024 10:50 AM CDT [facility] LDL (CALCULATED) 45 <100 MG/DL 07/08/20 10:50 AM CDT [facility] NON HDL CHOLESTEROL 75 <130 MG/DL 07/08 10:50 AM CDT [facility] CHOL/HDL RATIO 2.4 0.0 - 4.5 07/08/2024 10:50 AM CDT [facility] VLDL CALCULATION 30 5 - 55 MG/DL 07/08/2024 10:50 AM CDT [facility] LIPID INTERPRETATION 07/08/2024 10:50 AM T [facility] Comment: [facility] REPORT RECOMMENDATIONS: ADULT CHILD LOW RISK: CHOLESTEROL <200 <170 TRIGLYCERIDE <150 --- HDL >=60 --- LDL <100 <110 BORDERLINE: CHOLESTEROL 200-239 170-199 TRIGLYCERIDE 150-199 --- HDL 40-59 --- LDL 100-159 110-129 HIGH RISK: CHOLESTEROL >=240 >=200 TRIGLYCERIDE >=200 --- HDL <40 --- LDL >=160 >=130 07/08/2024 7:31 AM CDT Mary Hernandez PA-C LABORATORY Final Resu lt [facility] [address] [place] [address], * MG DIAG W ANH BILAT DIGI (11/03/2023 9:37 AM HAND ETCHER HELPER) Anatomical Region Laterality Modality Breast Bilateral Computed Tomogra phy, Other, Computed Tomography 11/03/2023 9:56 AM HAND ETCHER HELPER Narrative 11/03/2023 10:05 AM HAND ETCHER HELPER IMAGING STUDIES: Bilateral diagnostic mammograms with computer-aided detection with 2-D and 3-D imaging. Tomosynthesis. DATE: 11/03/2023 9:12 AM HISTORY: mastodynia . Left lateral breast pain. No palpable mass. COMPARISON: 08/30/2021. 09/30/2019 TISSUE TYPE: There are scattered areas of fibroglandular density. FINDINGS: 1. No distinct abnormality in the lateral aspect of the left breast. Similar appearance to prior exams. 2. No malignant microcalfcifications, new dominant masses, or architectural distortion. 3. No skin thickening or nipple retraction. Axillary regions are within normal limits. IMPRESSION: 1. No mammographic evidence of malignancy. 2. Assessment: ACR BI-RADS 2 - BENIGN FINDING(S) 3 .Routine Screening Bilateral MQSA BI-RADS Categories: Category 0 - needs additional imaging evaluation. Category 1 - negative. Category 2 - benign findings. Category 3 - probably benign findings, but short interval follow-up is recommended. Category 4 - suspicious abnormality and biopsy should be considered though the lesion may well be benign. Category 5 - highly suggestive of malignancy and appropriate action should be taken. Category 6 - known biopsy-proven malignancy A) A negative report should not delay a biopsy if a dominant or clinically suspicious mass is present. B) Adenosis and dense breasts may obscure an underlying neoplasm. C) Study interpreted with computer aided detection. Ordered By: MARY HERNANDEZ Interpreted By: Dilma Amaral, 11/03/2023 9:56 AM Mary Hernandez PA-C MAMMO Final Resu lt from Last 3 Months or Most Recently Relevant to Health Maintenance Insurance MEDICARE [place] [facility] [employer] Advance Directives Documents on File Type Date Recorded Patient Assembler Filters Expl anation Advance Directives and Livin g Will 12/15/2024 8:02 AM * DNR (Latest Code Status on File) Date Activated Date Inactivated Comments 12/01/2024 5:48 PM 12/05/2024 12:28 PM Healthcare Agents on File Name Relationship Healthcare Agent [facility] Communication Joshua Dawson Spouse Health Care Agent [email or web address] Care Teams Office Assistant Receptionist Relationship Specialty Start Date End Date Eliseo Charles MD [address] [address] PCP - General FAMILY PRACTICE 08/21/22
== END 2024-12-30 07:02 | disposition home or self-care (01) ==
PROVIDERS: PCP Family Medicine; Visit Provider Family Medicine
DX: Q76.49 Other congenital malformations of spine, not associated with scoliosis (principal)
CPT/HCPCS: 78300; A9503